=== PATIENT | female | born 1995 | race Caucasian/White ===

== ENCOUNTER 2018-05-13 16:10 | Outpatient (CLI) | payer OTHER ==
[2018-05-13 16:33] VITALS: BP 127/78
== END 2018-05-13 17:23 | disposition home or self-care (01) ==
LOC: TRG 16:10
PROVIDERS: ATTEND Obstetrics & Gynecology
DX: O47.1 False labor at or after 37 completed weeks of gestation (principal); Z3A.39 39 weeks gestation of pregnancy
CPT/HCPCS: 59025

== ENCOUNTER 2018-05-16 00:36 | Inpatient (IN) | payer OTHER ==
[2018-05-16] MEDS ORDERED: MINERAL OIL PO PRN (01:06)
[2018-05-16] MEDS ORDERED: BRETHINE SUB-Q PRN (01:06)
[2018-05-16] MEDS ORDERED: STADOL IV PRN (01:06)
[2018-05-16] MEDS ORDERED: BRETHINE IVP PRN (01:06)
[2018-05-16] MEDS ORDERED: ePHEDrine SULFATE IV PRN ×2 (01:06→07:54)
[2018-05-16] MEDS ORDERED: PITOCin/NS 20 UNIT/1000ML DRIP 20 UNITS/1,000 ML BAG IV SCH ×2 (02:00→14:00)
[2018-05-16] MEDS ORDERED: CLEOCIN 900 MG/50 mL 900 MG/50 ML BAG IV SCH (02:00)
[2018-05-16 02:04] LABS: Hematocrit 40.6 % (30.3-42.9); Hemoglobin 13.5 gm/dl (10.1-14.3); Mean Corpuscular HGB Conc 33 % (30-34); Mean Corpuscular Hemoglobin 27 pg (28-32); Mean Corpuscular Volume 81 fl (79-97); Platelet Count 284 K/mm3 (140-440); Red Blood Count 5.01 M/mm3 (3.65-5.03); Red Cell Distribution Width 15.8 % (13.2-15.2)
[2018-05-16] MEDS: LACTATED RINGERS 1,000 ML IV SCH ×2 (02:40→10:29)
[2018-05-16] MEDS ORDERED: NARCAN 2 MG/2 ML IV PRN (07:54)
--- NOTE | 2018-05-16 07:56 | Anesthesia Consultation ---
Anesthesia Consult and Med Hx Date of service: 05/16/18 - Airway Anesthetic Teeth Evaluation: Good ROM Head & Neck: Adequate Mental/Hyoid Distance: Adequate Mallampati Class: Class II Intubation Access Assessment: Probably Good - Pulmonary Exam CTA: Yes - Cardiac Exam Cardiac Exam: RRR - Pre-Operative Health Status ASA Pre-Surgery Classification: ASA2 Proposed Anesthetic Plan: Epidural - Pulmonary Hx Asthma: No COPD: No Hx Pneumonia: No - Cardiovascular System Hx Hypertension: No - Central Nervous System Hx Seizures: No Hx Psychiatric Problems: No - Endocrine Hx Renal Disease: No Hx End Stage Renal Disease: No Hx Hypothyroidism: No Hx Hyperthyroidism: No - Hematic Hx Anemia: No Hx Sickle Cell Disease: No - Other Systems Hx Alcohol Use: No
[2018-05-16] MEDS ORDERED: fentaNYL-BUPIV 2 MCG/ML-0.125% 200 MCG/100 ML BAG EPIDURAL SCH (08:00)
--- NOTE | 2018-05-16 08:53 | History and Physical Report ---
History of Present Illness Date of examination: 05/16/18 Date of admission: 05/16/18 01:41 Chief complaint: SROM History of present illness: Pt is a 22yo WF EDC 05/17/18; EGA 39 6/7 weeks presents to L&D complaining of SROM clear fluid at 11:30pm last night followed by irregular contractions. She received [facility] at [facility] since 11 weeks and course has been unremarkable. records are available and GBS is negative. Past History Past Medical History: no pertinent history Past Surgical History: other (oral surgery) Family/Genetic History: diabetes, hypertension Social history: no significant social history, - Obstetrical History Expected Date of Delivery: 05/17/18 Actual Gestation: 39 Week(s) 6 Day(s) : 1 Medications and Allergies Allergies Allergy/AdvReac Type Severity Reaction Status Date / Time Penicillins Allergy Rash Verified 05/13/18 17:22 Home Medications Medication Instructions Recorded Confirmed Last Taken Type Pnv 29-1 Tablet 1 tab PO DAILY 05/16/18 05/16/18 1 Day Ago History ~05/15/18 Active Meds: Active Medications Butorphanol Tartrate (Stadol) 2 mg IV Q2H PRN PRN Reason: Pain , Severe (7-10) Last Admin: 05/16/18 04:50 Dose: 2 mg Ephedrine Sulfate (Ephedrine Sulfate) 10 mg IV Q2M PRN PRN Reason: Hypotension Ephedrine Sulfate (Ephedrine Sulfate) 10 mg IV Q2M PRN PRN Reason: Hypotension Clindamycin HCl (Cleocin 900 Mg/50 Ml) 900 mg in 50 mls @ 100 mls/hr IV Q8H LEXX ; Protocol Last Admin: 05/16/18 02:43 Dose: 100 mls/hr Lactated Ringer's (Lactated Ringers) 1,000 mls @ 125 mls/hr IV DIRECT LEXX Last Admin: 05/16/18 02:40 Dose: 125 mls/hr Oxytocin/Sodium Chloride (Pitocin/Ns 20 Unit/1000ml Drip) 20 units in 1,000 mls @ 125 mls/hr IV DIRECT LEXX Fentanyl/Bupivacaine/Sodium Chlor (Fentanyl-Bupiv 2 Mcg/Ml-0.125%) 200 mcg in 100 mls @ 12 mls/hr EPIDURAL TITR LEXX; Protocol Mineral Oil (Mineral Oil) 30 ml PO QHS PRN PRN Reason: Constipation Naloxone HCl (Narcan 2 Mg/2 Ml) 0.2 mg IV Q5M PRN PRN Reason: Respiratory sedation Terbutaline Sulfate (Brethine) 0.25 mg SUB-Q ONCE PRN PRN Reason: Hyperstimulation/Hypertonicity Terbutaline Sulfate (Brethine) 0.25 mg IVP ONCE PRN PRN Reason: Hyperstimulation/Hypertonicity Review of Systems All systems: negative - Vital Signs Vital signs: Vital Signs Pulse BP Pulse Ox 104 H 122/77 97 05/16/18 00:52 05/16/18 00:52 05/16/18 00:52 Temp Pulse Resp BP Pulse Ox 98.0 F 116 H 20 128/64 100 05/16/18 07:07 05/16/18 08:51 05/16/18 07:07 05/16/18 08:51 05/16/18 08:48 - Physical Exam Breasts: Positive: deferred Cardiovascular: Regular rate Lungs: Positive: Clear to auscultation Abdomen: Positive: normal appearance Genitourinary (Female): Positive: normal external genitalia Vagina: Positive: normal moisture Uterus: Positive: enlarged Extremities: Positive: normal - Obstetrical FHR: category 1 Uterine Contraction Monitor Mode: External Cervical Dilatation: 4 (per nurse) Cervical Effacement Percentage: 80 (per nurse) station: -2 Uterine Contraction Pattern: Irregular Uterine Tone Measurement Phase: Contraction Uterine Contraction Intensity: Moderate Results Result Diagrams: 05/16/18 01:30 Abnormal lab results 05/16/18 Range/Units 01:30 WBC 18.3 H (4.5-11.0) K/mm3 MCH 27 L (28-32) pg RDW 15.8 H (13.2-15.2) % All other labs normal. Assessment and Plan - Patient Problems (1) 39 weeks gestation of Onset Date: 05/16/18 Current Visit: Yes Status: Acute Plan to address problem: A: IUP @ 39 6/7 weeks in labor P: Admit to L&D for expectant vaginal delivery Will begin pitocin augmentation of labor.
[2018-05-16] MEDS ORDERED: PITOCin/NS 30 UNIT/500ML 30 UNITS/500 ML BAG IV SCH (09:00)
--- NOTE | 2018-05-16 13:12 | Procedure Note ---
OB Delivery Note - Delivery Date of Delivery: 05/16/18 Surgeon: DENI KELLY Estimated blood loss: 300cc - Vaginal Delivery presentation: vertex Delivery position: OA Intrapartum events: none Delivery induction: oxytocin Delivery augmentation: pitocin Delivery monitor: external FHT, external uterine Route of delivery: Delivery placenta: spontaneous Delivery cord: nuchal cord (x3), 3 umbilical vessels Episiotomy: none Delivery laceration: 2nd degree (perineal) Delivery repair: vicryl Anesthesia: epidural Delivery comments: delivered OA and placed on Mom's chest for edge-[id number]-scqp bonding and delayed cord clamping, cut by Dad - Infant A at 1 minute: 8 at 5 minutes: 9 Gender: Female (3164gms)
[2018-05-16] MEDS ORDERED: TUCKS PAD TP PRN (13:13)
[2018-05-16] MEDS ORDERED: NORCO 5/325 PO PRN (13:13)
[2018-05-16] MEDS ORDERED: PHENERGAN PO PRN (13:13)
[2018-05-16] MEDS ORDERED: ZOFRAN IV PRN (13:13)
[2018-05-16] MEDS ORDERED: BENADRYL PO PRN (13:13)
[2018-05-16] MEDS ORDERED: MILK OF MAGNESIA PO PRN (13:13)
[2018-05-16] MEDS ORDERED: LANSINOH TP PRN (13:13)
[2018-05-16] MEDS ORDERED: DULCOLAX PR PRN (13:13)
[2018-05-16] MEDS ORDERED: PHENERGAN PR PRN (13:13)
[2018-05-16] MEDS ORDERED: TYLENOL PO PRN (13:13)
[2018-05-16] MEDS ORDERED: SODIUM CHLORIDE FLUSH SYRINGE 10 ML IV NR (14:00)
[2018-05-16] MEDS ORDERED: DERMOPLAST TP PRN (16:11)
[2018-05-16] MEDS: MOTRIN PO SCH (18:00)
[2018-05-17 01:02] LABS: Hematocrit 31.4 % (30.3-42.9); Hemoglobin 10.5 gm/dl (10.1-14.3)
[2018-05-17] MEDS: MOTRIN PO SCH ×3 (06:19→20:30)
[2018-05-17] MEDS: COLACE PO SCH ×2 (09:10→22:15)
[2018-05-17] MEDS: FEOSOL PO SCH ×2 (09:10→21:53)
[2018-05-17] MEDS ORDERED: PRENATAL VITAMIN PO SCH (10:00)
--- NOTE | 2018-05-17 11:02 | Progress Note ---
Assessment and Plan - Patient Problems (1) 39 weeks gestation of Onset Date: 05/16/18 Current Visit: Yes Status: Resolved (2) (normal spontaneous vaginal delivery) Onset Date: 05/17/18 Current Visit: Yes Status: Resolved Plan to address problem: A: S/P - PPD #1 Doing well Asymptomatic anemia - stable P: May go home tomorrow. Subjective - Subjective Date of service: 05/17/18 Principal diagnosis: s/p - PPD #1 Interval history: Pt is feeling well without complaints. Bleeding improved. Patient reports: appetite normal, voiding normally, pain well controlled, flatus , ambulating normally, no nauseated [place]: doing well, nursing well, bottle feeding Objective - Vital Signs Latest vital signs: Vital Signs Temp Pulse Resp BP BP Pulse Ox 05/17/18 08:20 97.6 F 104 H 18 128/75 97 05/16/18 23:30 98.7 F 66 16 129/73 05/16/18 21:07 98.3 F 128 H 20 137/81 99 05/16/18 14:55 98.7 F 119 H 18 128/75 99 05/16/18 13:58 125 H 135/73 05/16/18 13:43 125 H 139/67 05/16/18 13:28 120 H 138/67 05/16/18 12:58 133 H 133/66 05/16/18 12:23 121 H 99 05/16/18 12:18 120 H 98 05/16/18 12:14 116 H 129/66 05/16/18 12:13 116 H 98 05/16/18 12:08 119 H 98 05/16/18 12:03 116 H 99 05/16/18 11:58 119 H 128/62 98 05/16/18 11:53 115 H 98 05/16/18 11:48 116 H 97 05/16/18 11:45 118 H 124/59 05/16/18 11:43 118 H 97 05/16/18 11:38 117 H 98 05/16/18 11:33 119 H 99 05/16/18 11:29 120 H 118/60 05/16/18 11:28 130 H 97 05/16/18 11:23 144 H 97 05/16/18 11:18 125 H 96 06/23/18 11:15 112 H 118/62 06/23/18 11:13 108 H 96 05/16/18 11:11 116 H 93 05/16/18 11:08 113 H 97 Intake and Output 05/16/18 05/17/18 05/17/18 22:59 06:59 14:59 Intake Total 360 600 Output Total 1000 Balance -640 600 Intake: Oral 360 Intake, Free Water 600 Output: Urine 1000 Void 1000 Other: Total, Intake Amount 360 Total, Output Amount 400 # Voids Void 3 1 - Exam Breasts: Present: deferred Cardiovascular: Present: Regular rate Lungs: Present: Clear to auscultation Abdomen: Present: normal appearance, soft Uterus: Present: normal, firm, fundal height below umbilicus Extremities: Present: normal - Labs Labs: Laboratory Tests 05/16/18 05/16/18 05/17/18 01:30 01:30 00:35 WBC 18.3 H RBC 5.01 Hgb 13.5 10.5 D Hct 40.6 31.4 D MCV 81 MCH 27 L MCHC 33 RDW 15.8 H Plt Count 284 Blood Type O POSITIVE Antibody Screen Negative
--- NOTE | 2018-05-17 13:11 | Discharge Summary ---
Providers - Providers Date of Admission: 05/16/18 01:41 Date of discharge: 05/18/18 Attending physician: DENI KELLY Primary care physician: DENI KELLY Hospitalization Reason for admission: active labor, rupture of membranes, IUP at term Delivery: Episiotomy: none Laceration: 2nd degree Incision: normal Other procedures: none complications: none Discharge diagnosis: IUP at term delivered baby: female Hospital course: Unremarkable. Condition at discharge: Good Disposition: DC-01 TO HOME OR SELFCARE - Discharge Diagnoses (1) 39 weeks gestation of Status: Resolved (2) (normal spontaneous vaginal delivery) Status: Resolved Plan - Discharge Medications Prescriptions: Ferrous Sulfate [Feosol 325 MG tab] 325 mg PO BID #60 tablet Ibuprofen [Motrin 600 MG tab] 600 mg PO Q6H #30 tablet Vit-Fe Fumar-FA [ Vitamin] 1 each PO QDAY #30 tablet - Provider Discharge Summary Activity: routine, no sex for 6 weeks, no heavy lifting 4 weeks, no strenuous exercise Diet: routine Instructions: routine Additional instructions: [] Smoking cessation referral if applicable(refer to patient education folder for contact #) [] Refer to [facility] Booklet Call your doctor immediately for: * Fever > 100.5 * Heavy vaginal bleeding ( >1 pad per hour) * Severe persistent headache * Shortness of breath * Reddened, hot, painful area to leg or breast * Drainage or odor from incision. * Keep incision clean and dry at all times and follow doctor's instructions regarding bathing/showering - Follow up plan Follow up: DENI KELLY MD [Primary Care Provider] - 6 Weeks DAMIAN DIAZ CNM [Advanced Practice Nurse] - 6 Weeks
[2018-05-17] MEDS ORDERED: M-M-R II VACCINE SUB-Q ONE (13:13)
[2018-05-17] MEDS ORDERED: BOOSTRIX IM ONE (13:13)
[2018-05-18] MEDS: MOTRIN PO SCH (02:05)
[2018-05-18 08:56] VITALS: BP 123/79
== END 2018-05-18 16:00 | disposition home or self-care (01) | DRG 775 ==
LOC: TRG 00:36 → LD 01:41 → OB 14:48
PROVIDERS: ADMIT Obstetrics & Gynecology; ATTEND Obstetrics & Gynecology
PROC: 10E0XZZ Delivery of Products of Conception, External Approach (ICD-10-PCS; principal; 2018-05-16)
PROC: 0KQM0ZZ Repair Perineum Muscle, Open Approach (ICD-10-PCS; 2018-05-16)
PROC: 3E033VJ Introduction of Other Hormone into Peripheral Vein, Percutaneous Approach (ICD-10-PCS; 2018-05-16)
PROC: 3E0R3BZ Introduction of Anesthetic Agent into Spinal Canal, Percutaneous Approach (ICD-10-PCS; 2018-05-16)
PROC: 00HU33Z Insertion of Infusion Device into Spinal Canal, Percutaneous Approach (ICD-10-PCS; 2018-05-16)
DX: O69.81X0 Labor and delivery complicated by cord around neck, without compression, not applicable or unspecified (principal); O70.1 Second degree perineal laceration during delivery; Z3A.39 39 weeks gestation of pregnancy; Z37.0 Single live birth; O90.81 Anemia of the puerperium; D64.9 Anemia, unspecified
CPT/HCPCS: 36415; 59025; 85014; 85018; 85027; 86850; 86900; 86901; A6250; J0595; J2590; J7120

== ENCOUNTER 2019-04-21 10:07 | Outpatient (CLI) | payer OTHER ==
--- NOTE | 2019-04-21 10:59 | Ultrasound Report ---
RIGHT BREAST ULTRASOUND: 04/21/19 10:07:00 CLINICAL: 23-year-old with a palpable breast lump. She has recently stopped breast-feeding. COMPARISON: None. FINDINGS: Ultrasound of the right breast was performed from 3 o'clock to 9 o'clock and demonstrated normal fibroglandular structures and normal fatty structures. No mass, cyst or shadowing to correlate with a lump at 6 o'clock at the edge of the areola. I examined the breast myself and I scanned the breast but found no mass or cyst. The area felt like normal mildly lumpy breast tissue. IMPRESSION: Negative right breast ultrasound. BI-RADS 1 - - Negative RECOMMENDATION: Clinical followup and routine mammographic screening based on ACS guidelines.
== END 2019-04-21 10:08 | disposition home or self-care (01) ==
LOC: SPVWC 10:07
PROVIDERS: ATTEND Advanced Practice Midwife
DX: N60.01 Solitary cyst of right breast (principal)

== ENCOUNTER 2019-12-29 11:13 | Outpatient (CLI) | payer OTHER ==
--- NOTE | 2019-12-29 13:34 | Ultrasound Report ---
COMPLETE LEFT BREAST ULTRASOUND HISTORY: 24-year-old with left breast pain. She also describes a lump at the areola and drainage at t he skin. COMPARISON: None. FINDINGS: Complete sonographic evaluation including imaging of the four quadrants and subareolar aspe ct of the left breast was performed. There is a subtle irregular hypoechoic intradermal lesion at 4:0 0 at the areola. It measures approximately 4 mm in maximum dimension. This correlates with the site o f a cheesy discharge. There is also an oval solid hypoechoic smooth mass which is in the hypodermis i n the same area. It measures 8 x 4 x 9 mm. No other mass and no suspicious shadowing.. IMPRESSION: A benign intradermal lesion and a probably benign 9 mm mass of the hypodermis at 4:00 subareolar. The se lesions are probably connected but there is no visible connection identified. Recommend 6 month fo llow-up ultrasound to reevaluate the mass. BIRADS 3: Probably benign. Signer Name: Jose Bazan MD Signed: 12/29/2019 1:29 PM Workstation Name: [id number]
== END 2019-12-29 11:14 | disposition home or self-care (01) ==
LOC: SPVWC 11:13
PROVIDERS: ATTEND Advanced Practice Midwife
DX: N63.42 Unspecified lump in left breast, subareolar (principal); N64.89 Other specified disorders of breast